=== PATIENT | female | born 1990 | race African-American/Black ===

== ENCOUNTER 2016-09-26 18:42 | Emergency (ER) | payer SELFPAY ==
[~2016-09-26] VITALS: Ht 165.1 cm; Wt 90.7 kg
[2016-09-26 19:30] LABS: BILIRUBIN,URINE NEGATIVE (NEG); GLUCOSE,URINE NEGATIVE (NEG); NITRITE,URINE NEGATIVE (NEG); PROTEIN,URINE 30 mg/dL (NEG-TRACE)
[2016-09-26 19:36] LABS: BACTERIA,URINE 0 /HPF (0-FEW); SQUAMOUS EPITHELIAL CELL,UR FEW /LPF
[2016-09-26] MEDS ORDERED: cefTRIAXone IM 250 MG VIAL IM ONE (20:15)
[2016-09-26] MEDS ORDERED: AZITHROMYCIN 250 MG TABLET. PO ONE (20:15)
[2016-09-26 22:55] VITALS: BP 135/61
[2016-09-26] MEDS ORDERED: DOXY100C2 PO (23:11)
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
--- NOTE | 2016-09-27 08:57 | RAD ---
Transabdominal and transvaginal sonography of the pelvis Indications: Right-sided abdominal pain with right adnexal tenderness and cervicitis. Irregular cycles. Transabdominal sonography: The uterus is anteverted in position. The longitudinal and AP and transverse dimensions of the uterus are 7.5 cm and 4.4 cm and 4.5 cm respectively. Endometrial canal is poorly visualized. Therefore, transvaginal sonography will be performed. No adnexal masses are seen. Transvaginal sonography: The endometrial canal is heterogeneous and echogenic measuring 10 mm in thickness consistent with the secretory phase of the menstrual cycle. No hyperemia is seen. No uterine mass or fibroid is seen. Small amount of physiologic free fluid is seen within the inferior aspect of the cul-de-sac. The left ovary measures 3.4 cm and 1.9 cm and 1.5 cm in size and is normal. Color Doppler flow is seen within the left ovary. The right ovary measures 2.3 cm and 2.6 cm and 1.3 cm in size and is normal. Color Doppler flow is seen within the right ovary. No adnexal masses are seen. IMPRESSION: Normal pelvic sonogram.: Preliminary report was provided by the on-call radiologist Dr. Gavin Rausch after completion of the study since the system was down at that time.
== END 2016-09-26 23:22 | disposition home or self-care (01) ==
LOC: ER 18:42
DX: N73.9 Female pelvic inflammatory disease, unspecified (principal)
CPT/HCPCS: 76830; 76856; 81001; 81025; 87491; 87591; 96372; 99285; J0696; Q0111; Q0144

== ENCOUNTER 2018-03-02 10:42 | Emergency (ER) | payer OTHER ==
[~2018-03-02] VITALS: Ht 167.6 cm; Wt 104.3 kg
[~2018-03-02 10:42] MED LIST: DOXY100C2 PO; IBUP200T44 PO; METR500T PO
--- NOTE | 2018-03-02 11:08 | PHYS DOC ---
Past Medical History Past Medical History: No Pertinent History Past Surgical History: No Surgical History Alcohol Use: Occasionally Drug Use: Marijuana Adult General Chief Complaint Chief Complaint: FLANK PAIN [facility] HPI Patient is a pleasant 27-year-old female who presents to the emergency department for evaluation. She states that for the past week or so, she has some left-sided flank pain, along with urinary frequency, and dysuria. She reports pressure in her pelvic area with urination. She has not had any hematuria. She states the pain in her flank began gradually. She has not had any fevers or chills, nausea, or vomiting. She does admit some vaginal discharge , also over the same time period, which is not normal for her, but she denies the possibility of STD, but is willing to undergo evaluation for such. She has not had any diarrhea. There are no alleviating or exacerbating factors to the patient's symptoms except the urination seems to worsen her pain. Review of Systems Review of Systems Constitutional: Denies fever or chills [] Eyes: Denies change in visual acuity, redness, or eye pain [] HENT: Denies nasal congestion or sore throat [] Respiratory: Denies cough or shortness of breath [] Cardiovascular: The patient denies any shortness of breath, chest pain, palpitations, or orthopnea [] GI: Denies abdominal pain, nausea, vomiting, bloody stools or diarrhea [] : No additional information not addressed in HPI [] Musculoskeletal: Denies back pain or joint pain [] Integument: Denies rash or skin lesions [] Neurologic: Denies headache, focal weakness or sensory changes [] Endocrine: Denies polyuria or polydipsia [] All other systems were reviewed and found to be within normal limits, except as documented in this note. Allergies Allergies Allergies Coded Allergies Type Severity Reaction Last Updated Verified No Known Drug Allergies 11/09/14 No Physical Exam Physical Exam PHYSICAL EXAM: CONSTITUTIONAL: Well developed, well nourished HEAD: normocephalic, atraumatic EENT: PERRL, EOMI. Conjunctivae normal color, sclerae non-icteric; moist mucous membranes. NECK: Supple, non-tender; no meningismus. LUNGS: Lungs CTA, breathing even and unlabored. Normal air movement. HEART: Regular rate and rhythm, no murmur CHEST: No deformity; non-tender ABDOMEN: The abdomen is soft, there is mild diffuse lower abdominal tenderness to palpation, somewhat more left-sided, as well as left mid abdominal tenderness , without rebound or guarding, or palpable mass. The remainder the abdomen is relatively soft and non-tender, no masses or bruits. EXTREM: Normal ROM; no deformity, no calf tenderness. Normal pulses palpable in all extremities. There is no pedal edema. SKIN: No rash; no diaphoresis NEURO: Alert; normal speech and cognition; CN's grossly intact; strength grossly intact without focal deficit. BACK: There is mild bilateral CVA TTP.There is no bony tenderness to palpation of the thoracic or lumbar spine. PELVIC EXAM: Normal external genitalia. There is a small amount of white frothy vaginal discharge, without active cervical discharge. There is no cervical motion tenderness. There is no definite adnexal tenderness or mass palpable. Exam was performed in the presence of the patient's nurse, Reyna. Current Patient Data Vital Signs Vital Signs Date Time Temp Pulse Resp B/P (MAP) Pulse Ox O2 Delivery O2 Flow Rate FiO2 03/02/18 10:45 98.1 72 16 130/75 (93) 100 Room Air 98.1 Lab Values Laboratory Tests Test 03/02/18 10:50 03/02/18 10:56 03/02/18 11:51 Urine Collection Type Void Urine Color Yellow Urine Clarity Clear Urine pH 8.0 Urine Specific [place] 1.025 Urine Protein Negative mg/dL (NEG-TRACE) Urine Glucose (UA) 250 mg/dL (NEG) Urine Ketones (Stick) Negative mg/dL (NEG) Urine Blood Negative (NEG) Urine Nitrite Negative (NEG) Urine Bilirubin Negative (NEG) Urine Urobilinogen Dipstick 0.2 mg/dL (0.2 mg/dL) Urine Leukocyte Esterase Negative (NEG) Urine RBC Rare /HPF (0-2) Urine WBC Rare /HPF (0-4) Urine Squamous Epithelial Cells Few /LPF Urine Bacteria Few /HPF (0-FEW) Urine Mucus Slight /LPF POC Urine HCG, Qualitative Hcg negative (Negative) Glucose (Fingerstick) 85 mg/dL (70-99) Microbiology 03/02/18 Wet Prep - Final, Complete WET PREP Final YEAST NONE SEEN TRICHOMONAS NONE SEEN CLUE CELLS CLUE CELLS PRESENT WBCS FEW SQUAMOUS EPS MANY EKG EKG [] Radiology/Procedures Radiology/Procedures [] Course & Med Decision Making Course & Med Decision Making Pertinent Labs and Imaging studies reviewed. (See chart for details) [12:15 PM:Patient remains stable. I discussed test results, the need for close follow-up, and return precautions. I did discuss the glucosuria, the need for further outpatient evaluation to evaluate for the possibility of diabetes.] Dragon Disclaimer Dragon Disclaimer This electronic medical record was generated, in whole or in part, using a voice recognition dictation system. Departure Departure Impression: Primary Impression: Bacterial vaginosis Additional Impression: Dysuria Disposition: 01 HOME, SELF-CARE Condition: STABLE Patient Instructions: Bacterial Vaginosis Additional Instructions: Use the provided resources to help establish care with a primary care provider for further outpatient evaluation. There was STD testing done today, it is important that you obtain follow-up with a primary care provider so that the results, if positive, can be appropriately addressed. Scripts Metronidazole (FLAGYL) 500 Mg Tablet 1 TAB PO BID, #14 TAB Prov: PAULA FLEMING MD 03/02/18 Problem Qualifiers PAULA FLEMING MD Mar 02, 2018 11:08
[2018-03-02 11:23] LABS: BILIRUBIN,URINE NEGATIVE (NEG); CLARITY,URINE CLEAR; COLOR,URINE YELLOW; NITRITE,URINE NEGATIVE (NEG); PROTEIN,URINE NEGATIVE (NEG-TRACE); UROBILINOGEN,URINE 0.2 mg/dL (0.2 mg/dL)
[2018-03-02 11:42] LABS: BACTERIA,URINE FEW /HPF (0-FEW); RBC,URINE RARE /HPF (0-2); SQUAMOUS EPITHELIAL CELL,UR FEW /LPF; WBC,URINE RARE /HPF (0-4)
[2018-03-02] MEDS ORDERED: METR500T PO (12:17)
[2018-03-02] MEDS: AZITHROMYCIN 250 MG TABLET. PO ONE (12:34)
[2018-03-02] MEDS: cefTRIAXone IM 250 MG VIAL IM ONE (12:37)
[2018-03-02 12:54] VITALS: BP 135/88
[2018-03-03 13:17] LABS: GC PROBE Negative (Negative)
== END 2018-03-02 12:56 | disposition home or self-care (01) ==
LOC: ER 10:42
DX: N76.0 Acute vaginitis (principal); B96.89 Other specified bacterial agents as the cause of diseases classified elsewhere; R30.0 Dysuria; R35.0 Frequency of micturition
CPT/HCPCS: 81001; 81025; 82962; 87491; 87591; 96372; 99283; J0696; Q0111; Q0144

== ENCOUNTER 2018-04-14 11:17 | Emergency (ER) | payer OTHER ==
[~2018-04-14] VITALS: Ht 165.1 cm; Wt 108.9 kg
[2018-04-14 11:22] VITALS: BP 139/81
[2018-04-14] MEDS ORDERED: PROPARACAINE/FLUORESCEIN 0.5 ML OPHTH DROPS. OS ONE (11:45)
[2018-04-14] MEDS ORDERED: TETRACAINE 0.5% OPHTH SOLUTION 4ML BOTTLE. OS ONE (12:00)
[2018-04-14] MEDS ORDERED: ERYT1OIN6 OP (12:21)
--- NOTE | 2018-04-14 12:21 | PHYS DOC ---
Past Medical History Past Medical History: No Pertinent History Past Surgical History: Other Additional Past Surgical Histo: d & C Alcohol Use: Occasionally Drug Use: Marijuana Adult General Chief Complaint Chief Complaint: EYE PROBLEMS HPI HPI Patient is a 27 year old female with no significant medical history who presents today complaining of left eye pain and irritation with drainage. Patient states 3 days ago she accidentally hit her left eye with a rubber band while she was trying to tie on her hair. Patient states yesterday she noted increased pain with yellow drainage. She denies any vision loss. Review of Systems Review of Systems Constitutional: Denies fever or chills [] Eyes: Pupils left eye redness, pain, drainage. Denies change in visual acuity Musculoskeletal: Denies back pain or joint pain [] Integument: Denies rash or skin lesions [] Neurologic: Denies headache, focal weakness or sensory changes [] All other systems were reviewed and found to be within normal limits, except as documented in this note. Current Medications Current Medications Current Medications Medications (Trade) Dose Ordered Sig/Rahat Start Time Stop Time Status Last Admin Dose Admin Proparacaine HCl/ Fluorescein Sodium (Flucaine Eye Drops) 1 drop 1X ONCE 04/14/18 11:45 04/14/18 11:46 DC Tetracaine HCl (Tetracaine) 1 drop 1X ONCE 04/14/18 12:00 04/14/18 12:01 DC Allergies Allergies Allergies Coded Allergies Type Severity Reaction Last Updated Verified No Known Drug Allergies 11/09/14 No Physical Exam Physical Exam Constitutional: Well developed, well nourished, no acute distress, non-toxic appearance. [] HENT: Normocephalic, atraumatic, bilateral external ears normal, oropharynx moist, no oral exudates, nose normal. [] Eyes: PERRLA, EOMI, left conjunctiva is moderately injected, clear drainage on physical exam. Eye exam under palacoi lamp was noted for corneal abrasion at 12 o'clock position Skin: Warm, dry, no erythema, no rash. [] Back: No tenderness, no CVA tenderness. [] Extremities: No tenderness, no cyanosis, no clubbing, ROM intact, no edema. [] Neurologic: Alert and oriented X 3, normal motor function, normal sensory function, no focal deficits noted. [] Psychologic: Affect normal, judgement normal, mood normal. [] Current Patient Data Vital Signs Vital Signs Date Time Temp Pulse Resp B/P (MAP) Pulse Ox O2 Delivery O2 Flow Rate FiO2 04/14/18 11:22 97.9 104 17 139/81 (100) 98 Room Air 97.9 EKG EKG [] Radiology/Procedures Radiology/Procedures [] Course & Med Decision Making Course & Med Decision Making Pertinent Labs and Imaging studies reviewed. (See chart for details) This is a 27-year-old female patient presenting to the ED today with left eye injury, she accidentally hit her left eye with the provided by 3 days ago. On physical exam she has a corneal abrasion. Tetanus up-to-date. Discharged with erythromycin. Provided felt tipping machine tender for follow-up in the next 7 days. Dragon Disclaimer Dragon Disclaimer This electronic medical record was generated, in whole or in part, using a voice recognition dictation system. Departure Departure Impression: Primary Impression: Corneal abrasion, left Disposition: HOME, SELF-CARE Condition: STABLE Referrals: NO PCP (PCP) Alvina COFFMAN MD Follow-up in the next 7 days Patient Instructions: Eye - Corneal Abrasion Additional Instructions: You were evaluated in the emergency room and noted to have a corneal abrasion. Use the prescribed eye ointment as ordered. Please contact the provided a felt tipping machine tender today and set up a follow-up appointment as an outpatient. Scripts Erythromycin Base (Erythromycin) 1 Gm Oint...g. 1 APPLIC OP Q4HRS W/A, #1 MISC Apply half inch to the left eye every 4 hours while awake for 7-10 days Prov: DOMITILA HERNÁNDEZ FELT HAT FLANGING OPERATOR 04/14/18 Problem Qualifiers Primary Impression: Corneal abrasion, left Encounter type: initial encounter Qualified Codes: S05.02XA - Injury of conjunctiva and corneal abrasion without foreign body, left eye, initial encounter DOMITILA HERNÁNDEZ FELT HAT FLANGING OPERATOR Apr 14, 2018 12:21
== END 2018-04-14 12:27 | disposition home or self-care (01) ==
LOC: ER 11:17
DX: S05.02XA Injury of conjunctiva and corneal abrasion without foreign body, left eye, initial encounter (principal); W22.8XXA Striking against or struck by other objects, initial encounter; Y93.89 Activity, other specified; Y92.89 Other specified places as the place of occurrence of the external cause; Y99.8 Other external cause status
CPT/HCPCS: 99283

== ENCOUNTER 2018-12-25 21:28 | Emergency (ER) | payer OTHER ==
[~2018-12-25] VITALS: Ht 172.7 cm; Wt 108.9 kg
[~2018-12-25 21:28] MED LIST changes: +ERYT1OIN6 OP
--- NOTE | 2018-12-25 22:20 | PHYS DOC ---
Past Medical History Past Medical History: No Pertinent History (RASHAUN MOSQUEDA APRN) Past Surgical History: Other Additional Past Surgical Histo: d & C (RASHAUN MOSQUEDA APRN) Alcohol Use: Occasionally Drug Use: Marijuana (RASHAUN MOSQUEDA APRN) Adult General Chief Complaint Chief Complaint: VAGINAL BLEEDING HPI HPI Patient is a 28 year old Female who presents with menses. This month that lasted 1-1/2 weeks which is longer for her than usual. Patient states that she's been off of her period for a week and she is having dark brown discharge that is more than usual and she does not usually have that after periods. Patient's last period was December 12. Patient states she was recently treated for bacterial vaginosis and finish the antibiotic that was given to her by [facility] that was a couple weeks ago. Patient denies any pain at this time. Patient states that times she does have left lower abdomen/pelvic pain and it is sharp at times and more so with movement. (RASHAUN MOSQUEDA APRN) Review of Systems Review of Systems GI: Left lower pelvic pain. Denies abdominal pain, nausea, vomiting, bloody stools or diarrhea [] : vaginal discharge. Denies dysuria or hematuria [] All other systems were reviewed and found to be within normal limits, except as documented in this note. (RASHAUN MOSQUEDA APRN) Current Medications Current Medications Current Medications Medications (Trade) Dose Ordered Sig/Rahat Start Time Stop Time Status Last Admin Dose Admin Azithromycin (Zithromax) 1,000 mg 1X ONCE 12/25/18 23:00 12/25/18 23:01 DC 12/25/18 22:59 1,000 MG Ceftriaxone Sodium (Rocephin Im) 250 mg 1X ONCE 12/25/18 23:00 12/25/18 23:01 DC 12/25/18 23:03 250 MG Ondansetron HCl (Zofran Odt) 4 mg 1X ONCE 12/25/18 23:00 12/25/18 23:01 DC 12/25/18 22:58 4 MG (PRATIBHA KWAN MD) Allergies Allergies Allergies Coded Allergies Type Severity Reaction Last Updated Verified No Known Drug Allergies 11/09/14 No (PRATIBHA KWAN MD) Physical Exam Physical Exam Constitutional: Well developed, well nourished, no acute distress, non-toxic appearance. [] Abdomen: Bowel sounds normal, soft, no tenderness, no masses, no pulsatile masses. [] Skin: Warm, dry, no erythema, no rash. [] Back: No tenderness, no CVA tenderness. [] Neurologic: Alert and oriented X 3, normal motor function, normal sensory function, no focal deficits noted. [] Psychologic: Affect normal, judgement normal, mood normal. Normal Physical Exam [] (RASHAUN MOSQUEDA APRN) Current Patient Data Vital Signs Vital Signs Date Time Temp Pulse Resp B/P (MAP) Pulse Ox O2 Delivery O2 Flow Rate FiO2 12/26/18 00:25 74 18 136/81 (99) 99 Room Air 12/25/18 22:15 98.2 98.2 (PRATIBHA KWAN MD) Lab Values Laboratory Tests Test 12/25/18 22:15 12/25/18 22:20 12/25/18 23:40 Chlamydia DNA Probe Negative (Negative) Neisseria gonorrhoeae DNA Probe Negative (Negative) Urine Collection Type Void Urine Color Yellow Urine Clarity Clear Urine pH 6.0 Urine Specific [place] 1.015 Urine Protein Negative mg/dL (NEG-TRACE) Urine Glucose (UA) Negative mg/dL (NEG) Urine Ketones (Stick) Negative mg/dL (NEG) Urine Blood Moderate (NEG) Urine Nitrite Negative (NEG) Urine Bilirubin Negative (NEG) Urine Urobilinogen Dipstick 0.2 mg/dL (0.2 mg/dL) Urine Leukocyte Esterase Moderate (NEG) Urine RBC Occ /HPF (0-2) Urine WBC 5-10 /HPF (0-4) Urine Squamous Epithelial Cells Many /LPF Urine Bacteria Moderate /HPF (0-FEW) Urine Mucus Marked /LPF Urine Test Negative (NEG) White Blood Count 11.0 x10^3/uL (4.0-11.0) Red Blood Count 4.12 x10^6/uL (3.50-5.40) Hemoglobin 12.8 g/dL (12.0-15.5) Hematocrit 38.2 % (36.0-47.0) Mean Corpuscular Volume 93 fL (79-100) Mean Corpuscular Hemoglobin 31 pg (25-35) Mean Corpuscular Hemoglobin Concent 34 g/dL (31-37) Red Cell Distribution Width 13.5 % (11.5-14.5) Platelet Count 309 x10^3/uL (140-400) Neutrophils (%) (Auto) 60 % (31-73) Lymphocytes (%) (Auto) 32 % (24-48) Monocytes (%) (Auto) 7 % (0-9) Eosinophils (%) (Auto) 1 % (0-3) Basophils (%) (Auto) 1 % (0-3) Neutrophils # (Auto) 6.6 x10^3/uL (1.8-7.7) Lymphocytes # (Auto) 3.5 x10^3/uL (1.0-4.8) Monocytes # (Auto) 0.8 x10^3/uL (0.0-1.1) Eosinophils # (Auto) 0.1 x10^3/uL (0.0-0.7) Basophils # (Auto) 0.1 x10^3/uL (0.0-0.2) Sodium Level 137 mmol/L (136-145) Potassium Level 3.6 mmol/L (3.5-5.1) Chloride Level 105 mmol/L (98-107) Carbon Dioxide Level 24 mmol/L (21-32) Anion Gap 8 (6-14) Blood Urea Nitrogen 8 mg/dL (7-20) Creatinine 0.6 mg/dL (0.6-1.0) Estimated GFR (Cockcroft-Gault) 143.0 Glucose Level 102 mg/dL (70-99) H Calcium Level 9.3 mg/dL (8.5-10.1) Laboratory Tests 12/25/18 23:40 Laboratory Tests 12/25/18 23:40 Microbiology 12/25/18 Urine Culture - Final, Complete 12/25/18 Urine Culture Result 1 (HARI) - Final, Complete 12/25/18 Wet Prep - Final, Complete (PRATIBHA KWAN MD) Lab Values Laboratory Tests Test 12/25/18 22:20 Urine Collection Type Void Urine Color Yellow Urine Clarity Clear Urine pH 6.0 Urine Specific [place] 1.015 Urine Protein Negative mg/dL (NEG-TRACE) Urine Glucose (UA) Negative mg/dL (NEG) Urine Ketones (Stick) Negative mg/dL (NEG) Urine Blood Moderate (NEG) Urine Nitrite Negative (NEG) Urine Bilirubin Negative (NEG) Urine Urobilinogen Dipstick 0.2 mg/dL (0.2 mg/dL) Urine Leukocyte Esterase Moderate (NEG) Urine RBC Occ /HPF (0-2) Urine WBC 5-10 /HPF (0-4) Urine Squamous Epithelial Cells Many /LPF Urine Bacteria Moderate /HPF (0-FEW) Urine Mucus Marked /LPF Urine Test Negative (NEG) Microbiology 12/25/18 Wet Prep - Final, Complete (RASHAUN MOSQUEDA APRN) EKG EKG [] (RASHAUN MOSQUEDA APRN) Radiology/Procedures Radiology/Procedures [] (RASHAUN MOSQUEDA APRN) Impressions: [facility] [address] [place], [place] [id number] IMAGING REPORT Signed PATIENT: FERNY MARTIN SACCOUNT: [id number] : 1990 LOCATION: ER AGE: 28 SEX: F EXAM STATUS: REG ER ORD. PHYSICIAN: RASHAUN MOSQUEDA APRN REASON: LEFT PELVIC PAIN, EXTENDED MENSES PROCEDURE: PELVIS W/TV Examination: Ultrasound pelvis HISTORY: History of left pelvic pain COMPARISON: None available. FINDINGS: The uterus measures 8.1 x 5.4 x 3.5 cm. The endometrium measures 8 mm in thickness. The right ovary measures 2.8 x 2.2 x 1.9 cm . The left ovary measures 2.6 x 2.8 x 1.4 cm. Blood flow identified and left ovaries. Dominant follicle identified in the right ovary measuring 1.5 cm. IMPRESSION: 1. 1.5 cm follicle identified in the right ovary. Otherwise unremarkable exam. Electronically signed by: German Castillo MD (12/25/2018 11:12 PM) [facility] DICTATED and SIGNED BY: GERMAN CASTILLO MD DATE: 12/25/18 5861 (RASHAUN MOSQUEDA APRN) Course & Med Decision Making Course & Med Decision Making Patient is a 28 year old Female who presents with menses. This month that l asted 1-1/2 weeks which is longer for her than usual. Patient states that she's been off of her period for a week and she is having dark brown discharge that is more than usual and she does not usually have that after periods. Patient's last period was December 12. Patient states she was recently treated for bacterial vaginosis and finish the antibiotic that was given to her by [facility] that was a couple weeks ago. Patient denies any pain at this time. Patient states that times she does have left lower abdomen/pelvic pain and it is sharp at times and more so with movement. Alert and oriented. Speaks in full clear sentences. Abdomen is soft and nontender. Ambulatory with a steady gait. Vital signs within normal limits. Afebrile. Patient denies any shortness of breath, chest pain, dizziness, diarrhea, nausea, vomiting, constipation, recent illness, headache. US of pelvis shows 1. 1.5 cm follicle identified in the right ovary. Otherwise unremarkable exam. Pelvic Exam: [employer] present Abdomen: Nontender External Genitalia: Normal Skin Speculum: Normal vaginal mucosa, white cervical discharge Bimanual: No adnexal masses or tenderness, No CMT (RASHAUN MOSQUEDA APRN) Course & Med Decision Making Staff Physician Addendum: I was working in the ER during the course of this patient's visit. I was available for consultation as needed, but I was not directly involved in the care of this patient. (PRATIBHA KWAN MD) Dragon Disclaimer Dragon Disclaimer This electronic medical record was generated, in whole or in part, using a voice recognition dictation system. (RASHAUN MOSQUEDA APRN) Departure Departure Impression: Primary Impression: Vaginal discharge Additional Impressions: Urinary tract infection Bacterial vaginosis Disposition: 01 HOME, SELF-CARE Condition: STABLE Referrals: NO PCP (PCP) Patient Instructions: Bacterial Vaginosis, Urinary Tract Infection Additional Instructions: Follow up with primary care provider or news camera person. You will be called in 48 hours only if your results are positive. Scripts Cephalexin (KEFLEX) 500 Mg Capsule 1 CAP PO BID, #14 CAP Prov: RASHAUN MOSQUEDA APRN 12/25/18 Metronidazole (METRONIDAZOLE) 500 Mg Tablet 1 TAB PO BID, #14 TAB Prov: RASHAUN MOSQUEDA APRN 12/25/18 Problem Qualifiers Additional Impressions: Urinary tract infection Urinary tract infection type: site unspecified Hematuria presence: without hematuria Qualified Codes: N39.0 - Urinary tract infection, site not specified RASHAUN MOSQUEDA APRN Dec 25, 2018 22:20 PRATIBHA KWAN MD Jan 01, 2019 07:53
[2018-12-25 22:29] LABS: BILIRUBIN,URINE NEGATIVE (NEG); CLARITY,URINE CLEAR; COLOR,URINE YELLOW; NITRITE,URINE NEGATIVE (NEG); PROTEIN,URINE NEGATIVE (NEG-TRACE); UROBILINOGEN,URINE 0.2 mg/dL (0.2 mg/dL)
[2018-12-25 22:44] LABS: BACTERIA,URINE MODERATE /HPF (0-FEW); RBC,URINE OCC /HPF (0-2); SQUAMOUS EPITHELIAL CELL,UR MANY /LPF
[2018-12-25 22:45] LABS: U PREG PATIENT NEGATIVE (NEG)
[2018-12-25] MEDS ORDERED: cefTRIAXone IM 250 MG VIAL IM ONE (23:00)
[2018-12-25] MEDS ORDERED: AZITHROMYCIN 250 MG TABLET. PO ONE (23:00)
[2018-12-25] MEDS ORDERED: ONDANSETRON ODT 4 MG TAB.RAPDIS. PO ONE (23:00)
--- NOTE | 2018-12-25 23:15 | RAD ---
Examination: Ultrasound pelvis HISTORY: History of left pelvic pain COMPARISON: None available. FINDINGS: The uterus measures 8.1 x 5.4 x 3.5 cm. The endometrium measures 8 mm in thickness. The right ovary measures 2.8 x 2.2 x 1.9 cm . The left ovary measures 2.6 x 2.8 x 1.4 cm. Blood flow identified and left ovaries. Dominant follicle identified in the right ovary measuring 1.5 cm. IMPRESSION: 1. 1.5 cm follicle identified in the right ovary. Otherwise unremarkable exam. Electronically signed by: German Castillo MD (12/25/2018 11:12 PM) [facility]
[2018-12-25] MEDS ORDERED: METR-34 PO (23:31)
[2018-12-25] MEDS ORDERED: CEPH-264 PO (23:31)
[2018-12-25 23:50] LABS: BASO # 0.1 x10^3/uL (0.0-0.2); BASO % 1 % (0-3); EOS # 0.1 x10^3/uL (0.0-0.7); EOS % 1 % (0-3); HEMATOCRIT 38.2 % (36.0-47.0); HEMOGLOBIN 12.8 g/dL (12.0-15.5); LYMPH # 3.5 x10^3/uL (1.0-4.8); LYMPH % 32 % (24-48); MEAN CORPUSCULAR HEMOGLOBIN 31 pg (25-35); MEAN CORPUSCULAR HGB CONC 34 g/dL (31-37); MEAN CORPUSCULAR VOLUME 93 fL (79-100); MONO # 0.8 x10^3/uL (0.0-1.1); MONO % 7 % (0-9); NEUT # 6.6 x10^3/uL (1.8-7.7); NEUT % 60 % (31-73); PLATELET COUNT 309 x10^3/uL (140-400); RED BLOOD COUNT 4.12 x10^6/uL (3.50-5.40); RED CELL DISTRIBUTION WIDTH 13.5 % (11.5-14.5)
[2018-12-25 23:56] LABS: CALCIUM 9.3 mg/dL (8.5-10.1); CREATININE 0.6 mg/dL (0.6-1.0); POTASSIUM 3.6 mmol/L (3.5-5.1)
[2018-12-26 00:25] VITALS: BP 136/81
[2018-12-29 19:11] LABS: GC PROBE Negative (Negative)
== END 2018-12-26 00:26 | disposition home or self-care (01) ==
LOC: ER 21:28
DX: N76.0 Acute vaginitis (principal); B96.89 Other specified bacterial agents as the cause of diseases classified elsewhere; N39.0 Urinary tract infection, site not specified
CPT/HCPCS: 36415; 76830; 76856; 80048; 81001; 81025; 85025; 87086; 87491; 87591; 96372; 99285; J0696; Q0111; Q0144; Q0162